=== PATIENT | female | born 2000 | race Caucasian/White ===

== ENCOUNTER 2018-10-08 16:14 | Inpatient (IN) | payer BC ==
[2018-10-08] MEDS ORDERED: Ondansetron PF 4 MG/2 ML Vial IVP PRN (18:13)
--- NOTE | 2018-10-08 18:20 | RAD ---
XR Chest Pa Lat STANDARD History: [Pharyngitis] Comparison: None. Findings: The lungs are clear. No pneumothorax or effusion. Cardiac silhouette and mediastinal contou rs are within normal limits. No acute osseous abnormality. Impression: No acute intrathoracic abnormality.
[2018-10-08] MEDS: Sodium Chloride 0.9% 1,000 ML IV SCH (18:39)
[2018-10-08] MEDS: Acetaminophen 325 MG TAB PO PRN (18:39)
[2018-10-08 18:53] LABS: Mean Corpuscular HGB CONC 32.3 g/dL (32.0-36.0); Mean Corpuscular Hemoglobin 29.2 pg (25.0-35.0); Mean Corpuscular Volume 90.2 fL (78.0-98.0); Mean Platelet Volume 8.6 fL (7.4-10.4); Platelet Count 199 thou/uL (130-400); RBC Distribution Width 12.2 % (11.5-14.5); Red Blood Cell (RBC) Count 4.11 mill/uL (4.00-5.20); White Blood Cell (WBC) Count 7.2 thou/uL (4.8-10.8)
[2018-10-08 19:13] LABS: ALT (SGPT) 7 U/L (8-55); AST (SGOT) 11 U/L (5-34); Albumin 3.9 g/dL (3.5-5.0); Alkaline Phosphatase 53 U/L (40-150); Anion Gap 15 mmol/L (10-20); BUN (Urea Nitrogen) 12 mg/dL (7.0-18.7); Bilirubin, Total 0.8 mg/dL (0.2-1.2); Calc. Creatinine Clearance 0 mL/min (70-130); Calcium 9.1 mg/dL (7.8-10.44); Carbon Dioxide 23 mmol/L (22-29); Chloride 103 mmol/L (98-107); Estimated GFR-MDRD Greater than 90; Glucose 78 mg/dL (70-105); Potassium 3.7 mmol/L (3.5-5.1); Protein, Total 6.9 g/dL (6.0-8.3); Sodium 137 mmol/L (136-145)
[2018-10-08 19:14] LABS: MDiff Complete? YES
[2018-10-08 19:15] LABS: Band 14 % (5-11); Lymphocytes 16 % (28-48); Monocytes 11 % (0-4); Neutrophil 59 % (31-61); Platelet Morphology Comment Appears Adequate; RBC Morphology Normal; Toxic Granulation SLIGHT; Vacuoles SLIGHT
[2018-10-08 19:26] VITALS: BMI 21.0
[2018-10-08 20:17] LABS: Bilirubin Negative (Negative); Blood, Urine Negative (Negative); Clarity CLEAR (Clear); Glucose, Urine (Dipstick) Negative (Negative); Leukocyte Negative (Negative); Nitrite Negative (Negative); Protein, Urine (Dipstick) Negative (Neg-Trace); Specific Gravity, Urine 1.018 (1.002-1.036)
[2018-10-08 20:22] LABS: Bacteria/HPF None Seen HPF (None Seen); Hyaline Casts/LPF 0-3 HYALINE CAST LPF (0-3 Hyaline); RBC/HPF 0-3 HPF (0-3); Squamous Epithelial 0-3 HPF (0-3); WBC/HPF 0-3 HPF (0-3)
[2018-10-08 20:23] LABS: Pregnancy Test - Urine (BHCG) Negative (Negative); Pregu Control Background? CLEAR/WHITE (CLR/WHITE); Pregu Control Bar Appear? YES (CONTROL BAR); Specific Gravity 1.018 (1.002-1.036)
[2018-10-08] MEDS: cefTRIAXone\\ROCEPHIN 2 GM in Sodium Chloride 0.9% 100 ML IVPB SCH (20:23)
[2018-10-08] MEDS: Betamethasone 0.1% Cream 15 GM TUBE TOP PRN (21:36)
--- NOTE | 2018-10-08 22:14 | HP ---
CHIEF COMPLAINT: Fever, body aches, chills, sore throat, rash. HISTORY OF PRESENT ILLNESS: The patient is a very pleasant 18-year-old female with no past medical history, whose history of present illness actually began back in August of this year. The patient had traveled at the end of August to [place] with a [employer] club from [facility]. The patient states that while she was in [place], she developed some symptoms which she felt were a sinus infection. She did have some congestion in her nose and sinuses during that trip. The patient was working outside, she denies any camping or hiking during that trip. When she returned home, her symptoms began to progress into a cough. She states that the cough was productive, and she would occasionally bring up greenish to yellow sputum. Because of her coughing, she developed some back pain and was seen at a local ER and was given Mobic at that time for what she describes as a "pulled muscle." She denies any fever during those couple of weeks after her trip, although felt not as much general energy as she had before and continued to have cold symptoms. Over the weekend, about 3 days ago, the patient developed a high fever of 102 to 103. She also developed body aches and chills. On Saturday, she developed a sore throat. She then developed some macular pruritic lesions on her lower and upper extremities. She has been seen twice at the [facility], where strep test was negative and flu test was also negative. Due to her symptoms, she was referred to Dr. Barrientos for further workup and care. She was seen in his office today, and given her history and worsening symptoms, she was sent for direct admission. REVIEW OF SYSTEMS: 12-point review of systems performed and is negative except that stated above. ALLERGIES: NO KNOWN DRUG ALLERGIES. HOME MEDICATIONS: The patient takes no home medications. PAST MEDICAL/SURGICAL HISTORY: The patient denies any previous diagnoses or procedures. SOCIAL HISTORY: The patient is a college student at [employer] where she majors in [employer]. She works part-time at the [employer] and also does [employer] part-time. She does not smoke or use illicit drugs. She does drink alcohol occasionally, although she has had no alcohol over the past month since she has been feeling ill. FAMILY HISTORY: Noncontributory. PHYSICAL EXAMINATION: VITAL SIGNS: Blood pressure 117/78, temp 100.9, O2 saturation is 98% on room air, pulse is 96. GENERAL: The patient is a young female, who does appear mildly ill. HEENT: Head, atraumatic and normocephalic. Mucous membranes are moist. Inspection of the mouth and pharynx reveals erythematous soft palate. The patient has two ulcers present on the inside portion of her bottom lip. NECK: Trachea is midline. No JVD. CV: S1 and S2. Regular rate and rhythm. No appreciable murmurs, rubs, or gallops. LUNGS: Regular respiratory rate and pattern. Clear to auscultation bilaterally. I can appreciate no rhonchi or wheezes. ABDOMEN: Soft, positive bowel sounds. MUSCULOSKELETAL: No joint effusions noted. SKIN: The patient has erythematous macular lesions present on her lower extremities bilaterally as well as some evident on her forearms. There are no lesions present on her trunk or back. NEUROLOGIC: Cranial nerves 2 through 12 are intact. The patient is nonfocal. LABORATORY DATA: White blood cell count 7.2, RBC 4.11, hemoglobin 12, hematocrit 37, platelet count 199. Sodium 137, potassium 3.7, chloride 103, creatinine 0.79, GFR greater than 90. AST 11, ALT is 7, alkaline phosphatase 53. Urinalysis, positive for ketones. ASSESSMENT: Acute febrile illness with associated rash and pharyngitis, initial strep screen negative. Differential diagnosis includes possible Rickettsia type infection versus enterovirus versus bacterial. PLAN: The patient will be admitted per Dr. Barrientos for IV antibiotics to include Rocephin 2 g IV daily as well as doxycycline 100 mg IV b.i.d. Throat culture, respiratory virus, PCR panel and Rickettsia IgG IgM have been ordered and are pending. We will continue supportive care as well with mild IV hydration, antipyretics, and antiemetics. Further recommendations based on hospital course and lab results. This case has been discussed with Dr. Deleon and he agrees with the above. Job ID: [id number] [facility]
[2018-10-09] MEDS: Betamethasone 0.1% Cream 15 GM TUBE TOP PRN (08:28)
--- NOTE | 2018-10-09 10:24 | PRG ---
DATE OF SERVICE: 10/09/2018 SUBJECTIVE: The patient is seen and examined at bedside. Her mother is present in the room during my visit. The patient is complaining about mouth sores and swelling of her throat and difficulty of swallowing. Also she feels exhausted and tired. OBJECTIVE: VITAL SIGNS: Blood pressure is 102/63, pulse is 81, temperature is 98.4, maximal temperature was 100.9, respiratory rate is 16, O2 saturation is 97% on room air. HEENT: Head is atraumatic and normocephalic. She looks tired and exhausted. Eyes are PERRLA. Sclerae are nonicteric. Conjunctivae pinkish. Oral mucosa is moist. She has several ulcerations in her buccal mucosa. Her tonsils are swollen. I do not see any exudates. NECK: Supple. LUNGS: Clear. HEART: S1 and S2 normal. No S3. No S4. ABDOMEN: Soft, nontender, nondistended. EXTREMITIES: No clubbing, cyanosis, or edema. SKIN: She has several areas which are erythematous and multiple small in each area mostly on her extremities. I did not see any of those lesions on her trunk or on her back. NEUROLOGIC: She is alert and oriented x4. There are no any motor or sensory deficits present. Cranial nerves are intact. LABORATORY DATA: None today. She had 14 bands yesterday, elevated monocytes and low lymphocytes at 16. Neutrophils were 59%. Microbiology, two blood cultures, no growth so far. IMPRESSION: Febrile illness of unclear etiology at this point. The patient is getting IV Rocephin and oral doxycycline. The patient was screened for the strep prior to this hospitalization. It was negative IV hydration. We will use Chloraseptic and lidocaine viscous for her oral ulcers and swollen throat. We will try to encourage her to use boost instead of solid food and ID to see her today. Job ID: [id number]
[2018-10-09 11:39] LABS: Ref Lab Test Ordered EHRLICHIA AB; Reference Lab Name LABCORP
[2018-10-09 11:40] LABS: Ref Lab Test Ordered RICKETSIA AB; Reference Lab Name LABCORP
[2018-10-09] MEDS: Chloraseptic Spray 180 ml Bottle PO PRN ×2 (11:48→20:19)
[2018-10-09] MEDS: Lidocaine Viscous Sol 2% 15 ml UD Cup SSP SCH ×4 (11:49→20:40)
[2018-10-09] MEDS: Sodium Chloride 0.9% 1,000 ML IV SCH (11:52)
[2018-10-09] MEDS: cefTRIAXone\\ROCEPHIN 2 GM in Sodium Chloride 0.9% 100 ML IVPB SCH (20:17)
[2018-10-09] MEDS: Acetaminophen 325 MG TAB PO PRN (20:18)
--- NOTE | 2018-10-09 20:20 | PRG ---
DATE OF SERVICE: 10/09/2018 Feeling better today. Still with quite a bit of oropharyngeal pain, particularly in the lateral sides of her posterior oropharynx, but also in the anterior oral vestibule. No visual symptoms. No headaches. No cough. No chest pain. No abdominal pain or diarrhea. No genitourinary symptoms. PHYSICAL EXAMINATION: VITAL SIGNS: Temperature seems to be trending downwards. Other vital signs are normal. SKIN: The areas of skin eruption are subsiding. She still has quite a bit of stomatitis, but not as erythematous as yesterday. NECK: Supple. LUNGS: Symmetric, clear breath sounds. HEART: S1 and S2, regular rate. ABDOMEN: Soft, not distended. LABORATORY DATA: Her urinalysis was normal. White cell count was 7.2. There were 14% bands, 16% lymphocytes, and 11% monocytes. Chemistry was normal. We have negative blood cultures thus far. Throat culture preliminary mixed respiratory rylee. The respiratory virus PCR panel pending and other assays are pending. ASSESSMENT AND DISCUSSION: Febrile illness with pharyngitis, stomatitis, and skin eruption. Differential diagnosis includes enteroviral infection versus Arcanobacterium haemolyticum infection of the oropharynx. Herpes simplex is less likely, but not ruled out. Borrelia, Bartonella, and rickettsial infections also being considered. If she does well later today, discharge her on oral doxycycline. Job ID: [id number]
[2018-10-10] MEDS: Sodium Chloride 0.9% 1,000 ML IV SCH ×2 (01:00→10:47)
[2018-10-10] MEDS: Lidocaine Viscous Sol 2% 15 ml UD Cup SSP SCH ×3 (01:37→10:47)
[2018-10-10 08:23] VITALS: BP 110/72; TEMP 98.7
--- NOTE | 2018-10-11 02:11 | DIS ---
DATE OF ADMISSION: 10/08/2018 DATE OF DISCHARGE: 10/10/2018 FINAL DIAGNOSES: Febrile illness with pharyngitis, stomatitis, and skin eruption. Diagnostic workup is still pending. HOSPITAL COURSE: The patient was a 18-year-old female, who was admitted to the hospital with fever, body aches, chills, sore throat, and thrush. Illness actually began back in August of this year when she went to [place] with a horticulture club from [place] [employer] and . When she was in [place], she developed some symptoms which she felt were sinus infection. She had some congestion in her nose and sinus drainage. The patient was working outside. She denied any camping or hiking during this trip. When she returned home, the symptoms began to progress into a cough which was productive occasionally, bringing up greenish to yellow sputum. She was seen at the local ER and was given Mobic at that time for what she described as a pulled muscle. She denied any fever during those couple of weeks after her trip, although felt not as much general energy as she had before and continued to have cold symptoms over the weekends. About three days prior to this hospitalization, she developed fever up to 102 to 103, body aches and chills, then sore throat, and then macular pruritic rash on her lower and upper extremities. She was seen twice at the [facility]. The strep test was negative and flu test was negative. Then, she was referred to Dr. Barrientos for further workup. The patient was sent to the hospital from Dr. Barrientos' office. Her white count at the time of admission was 7.2, hemoglobin 12. Sodium 137, potassium 3.7, chloride 103, and creatinine 0.79. AST 11, ALT 7, alkaline phosphatase 53. Urinalysis was positive for ketones. She had chest x-ray done at the time of admission, which did not show any acute intrathoracic abnormality. During this hospitalization, she had quite a bit of oropharyngeal pain, particularly in the lateral sides of her posterior oropharynx. The virus PCR panel came back negative. The differential diagnosis was enteroviral infection versus Arcanobacterium haemolyticum infection of the oropharynx. Herpes simplex was less likely and Borrelia Bartonella and rickettsia infections also were considered. The patient was placed on Rocephin, was seen by Dr. Barrientos, who recommended to continue the regimen and discharge her home on doxycycline if she does well for the next 24 hours, and her temperature went down to less than low-grade and she is doing better after receiving IV fluids and she is discharged home in good condition. PHYSICAL EXAMINATION: VITAL SIGNS: Her blood pressure is 110/72, pulse is 80, temperature is 98.7, respiratory rate is 16, and O2 saturation is 99% on room air. HEENT: She still has some oral ulcers and swollen oropharynx. LUNGS: Clear. HEART: S1, S2 normal. ABDOMEN: Soft, nontender. Bowel sounds are present. No organomegaly. DISCHARGE MEDICATIONS: She is discharged home on doxycycline 100 mg twice a day for 2 weeks. DIET: Regular. ACTIVITY: As tolerated. FOLLOWUP: She will follow with Dr. Barrientos in 1 week and she will call his office today to discuss the possibility of postponing her trip to , which she is scheduled for next, I believe, Saturday, to leave [facility]. TIME SPENT: Discharge time is less than 30 minutes. Job ID: [id number]
[2018-10-12 12:07] LABS: HSV 2 - DNA Negative (Negative)
== END 2018-10-10 10:59 | disposition home or self-care (01) | DRG 864 ==
LOC: LAB 16:14 → EDSTATUS 16:15 → T4-B 16:17
PROVIDERS: ADMIT Internal Medicine; ATTEND Internal Medicine
DX: R50.9 Fever, unspecified (principal); K12.1 Other forms of stomatitis; R21 Rash and other nonspecific skin eruption; J02.9 Acute pharyngitis, unspecified
CPT/HCPCS: 36415; 71046; 80053; 81001; 81025; 85025; 86618; 87040; 87070; 87077; 87498; 87529; 87633; J0696; J3490